=== PATIENT | male | born 1980 | race Two or more races ===

== ENCOUNTER 2018-12-11 19:49 | Emergency (ER) | payer SELFPAY ==
[~2018-12-11] VITALS: Ht 160 cm; Wt 63.5 kg
[2018-12-11 20:14] VITALS: BP 146/90
--- NOTE | 2018-12-11 20:48 | PHYS DOC ---
Past Medical History Past Medical History: No Pertinent History ([facility],BRIANNA M UNLOADING CHECKER) Past Surgical History: No Surgical History ([facility],BRIANNA M UNLOADING CHECKER) Alcohol Use: Occasionally Drug Use: None ([facility],BRIANNA M UNLOADING CHECKER) Adult General Chief Complaint Chief Complaint: FINGER INJURY HPI HPI Patient is a 38 year old male who presents with wart to right tip of the third finger for the last year and he states it is painful at time. Denies any injury. ([facility],BRIANNA M UNLOADING CHECKER) Review of Systems Review of Systems Constitutional: Denies fever or chills [] Eyes: Denies change in visual acuity, redness, or eye pain [] HENT: Denies nasal congestion or sore throat [] Respiratory: Denies cough or shortness of breath [] Cardiovascular: No additional information not addressed in HPI [] GI: Denies abdominal pain, nausea, vomiting, bloody stools or diarrhea [] : Denies dysuria or hematuria [] Musculoskeletal: Denies back pain or joint pain [] Integument: Denies rash or skin lesions [] Neurologic: Denies headache, focal weakness or sensory changes [] Endocrine: Denies polyuria or polydipsia [] All other systems were reviewed and found to be within normal limits, except as documented in this note. ([facility],BRIANNA M UNLOADING CHECKER) Physical Exam Physical Exam Constitutional: Well developed, well nourished, no acute distress, non-toxic appearance. [] HENT: Normocephalic, atraumatic, bilateral external ears normal, oropharynx moist, no oral exudates, nose normal. [] Eyes: PERRLA, EOMI, conjunctiva normal, no discharge. [] Neck: Normal range of motion, no tenderness, supple, no stridor. [] Cardiovascular:Heart rate regular rhythm, no murmur [] Lungs & Thorax: Bilateral breath sounds clear to auscultation [] Abdomen: Bowel sounds normal, soft, no tenderness, no masses, no pulsatile masses. [] Skin: Warm, dry, no erythema, no rash. [] Back: No tenderness, no CVA tenderness. [] Extremities: No tenderness, no cyanosis, no clubbing, ROM intact, no edema. [] Neurologic: Alert and oriented X 3, normal motor function, normal sensory function, no focal deficits noted. [] Psychologic: Affect normal, judgement normal, mood normal. [] (BRIANNA HARRIS APRN) Current Patient Data Vital Signs Vital Signs Date Time Temp Pulse Resp B/P (MAP) Pulse Ox O2 Delivery O2 Flow Rate FiO2 12/11/18 20:14 98.1 78 20 146/90 (108) 99 Room Air 98.1 (CELSO PERRIN DO) EKG EKG [] (BRIANNA HARRIS APRN) Radiology/Procedures Radiology/Procedures [] (BRIANNA HARRIS APRN) Course & Med Decision Making Course & Med Decision Making Patient is a 38 year old male who presents with wart to right tip of the third finger for the last year and he states it is painful at time. Denies any injury. There is no infection or redness seen the wart is a little bit bigger than pinpoint size the very tip of his finger that looks like it might slightly go under the nailbed area. Nail bed is and not lifted. Has no other warts on the patient's hands. Patient denies any warts on any other part of his body. Patient is diagnosed with a wart and is directed to see a primary care physician or to see dermatology. I did refer him to [facility]. [] (BRIANNA HARRIS APRN) Dragon Disclaimer Dragon Disclaimer This electronic medical record was generated, in whole or in part, using a voice recognition dictation system. (BRIANNA HARRIS APRN) Departure Departure Impression: Primary Impression: Wart Disposition: 01 HOME, SELF-CARE Condition: STABLE Referrals: NO PCP (PCP) DAVIDA CACERES MD Patient Instructions: Warts Additional Instructions: CALL DERMATOLOGY CLINIC SOON POSSIBLE. Attending Signature Attending Signature I have reviewed the PA/SANDING MACHINE TENDER AUTOMATIC's note and plan of care. I was available for consultation as needed during the patient's visit in the emergency department. I agree with the clinical impression, plan, and disposition. (CELSO PERRIN DO) Problem Qualifiers Primary Impression: Wart Viral wart type: unspecified viral wart Qualified Codes: B07.9 - Viral wart , unspecified BRIANNA HARRIS APRN Dec 11, 2018 20:48 CELSO PERRIN DO Dec 14, 2018 00:37
== END 2018-12-11 20:55 | disposition home or self-care (01) ==
LOC: ER 19:49
DX: B07.8 Other viral warts (principal); M79.644 Pain in right finger(s)
CPT/HCPCS: 99281

== ENCOUNTER 2019-01-04 22:38 | Emergency (ER) | payer SELFPAY ==
[~2019-01-04] VITALS: Ht 170.2 cm; Wt 63.5 kg
[2019-01-04 23:07] VITALS: BP 146/90
[2019-01-04] MEDS ORDERED: LIDOCAINE 1% Multi-Dose 20 ML VIAL. INJ ONE (23:30)
[2019-01-04] MEDS ORDERED: LIDOCAINE/EPI/TETRACAINE TOPICAL GEL 3 ML. TP ONE (23:30)
[2019-01-04] MEDS ORDERED: DIPHTH,PERTUSS(ACELL),TET TOX 0.5 ML DISP.SYRIN. VAX IM ONE (23:30)
--- NOTE | 2019-01-05 00:08 | RAD ---
CT HEAD AND MAXILLOFACIAL WO dated 01/04/2019 10:58 PM Indication:..fall facial laceration pain Comparison: No comparison is available. Technique: Contiguous axial imaging the head was performed from skull base to vertex. No contrast administered. In addition, axial imaging of the maxillary facial bones obtained with thin cut coronal and sagittal reconstruction. One or more of the following individualized dose reduction techniques were utilized for this examination: 1. Automated exposure control 2. Adjustment of the mA and/or kV according to patient size 3. Use of iterative reconstruction technique Findings: Ventricles and sulci are mildly prominent for age. No midline shift or mass effect. Mild patchy low density in the deep/subcortical periventricular white matter. No hemorrhage or extra-axial collection. There is a focal zone of encephalomalacia within the right parietal lobe with evidence of prior right parietal craniotomy. Posterior fossa and brainstem unremarkable. No acute bony abnormality. Images of the maxillofacial bones show no evidence of displaced facial fracture. Mild deformity of the anterior wall of the left maxillary sinus could be related to old healed fracture. There is also some flattening of the bilateral nasal bones that could be related to old healed fracture. Zygomatic arches and mandible are intact. The orbital friedman and maxillary friedman are otherwise intact. Moderate mucosal thickening left maxillary sinus. Mild mucosal thickening bilateral ethmoid air cells and left maxillary sinus. There is occlusion of the left ostiomeatal unit. Sphenoid sinuses are clear. Mastoid air cells are clear. No significant soft tissue abnormality. IMPRESSION HEAD: 1. No evidence of acute intracranial hemorrhage or mass. 2. Small zone of encephalomalacia in the right parietal lobe status post craniotomy. 3. Minimal patchy low density in the deep/subcortical periventricular white matter, nonspecific but possibly related to chronic small vessel ischemic changes. Impression maxillofacial: 1. No evidence of displaced facial fracture. 2. Possible old healed fractures of the anterior wall left maxillary sinus and the bilateral nasal bone. 3. Paranasal sinus disease as described above. Electronically signed by: Ozzie Chaudhari MD (01/05/2019 12:05 AM) [facility]
--- NOTE | 2019-01-05 01:04 | PHYS DOC ---
Past Medical History Past Medical History: No Pertinent History (ROXY WONG APRN) Past Surgical History: No Surgical History (ROXY WONG APRN) Alcohol Use: Occasionally Drug Use: None (ROXY WONG APRN) Adult General Chief Complaint Chief Complaint: LACERATION/AVULSION HPI HPI Patient is a 38 year old [place]-speaking male who presents with the ED with left facial lacerations. Patient states he fell on concrete, denies any loss of consciousness. We tried using headmaster/mistress line as well as his friend, patient will not diverge information. Patient and friend are both laughing as we ask question. The lacerations do not appear to have occurred from a fall. Patient appears intoxicated, friend states he only drank 5 bottles of beer. (ROXY WONG APRN) Review of Systems Review of Systems Constitutional: Denies fever or chills [] Eyes: Denies change in visual acuity, redness, or eye pain [] HENT: Denies nasal congestion or sore throat [] Respiratory: Denies cough or shortness of breath [] Cardiovascular: No additional information not addressed in HPI [] GI: Denies abdominal pain, nausea, vomiting, bloody stools or diarrhea [] : Denies dysuria or hematuria [] Musculoskeletal: Denies back pain or joint pain [] Integument: Left facial laceration Neurologic: Denies headache, focal weakness or sensory changes [] All other systems were reviewed and found to be within normal limits, except as documented in this note. (ROXY WONG APRN) Current Medications Current Medications Current Medications Medications (Trade) Dose Ordered Sig/Halie Start Time Stop Time Status Last Admin Dose Admin Diphtheria/ Tetanus/Acell Pertussis (Boostrix) 0.5 ml ONCE ONCE 01/04/19 23:30 01/04/19 23:31 DC 01/04/19 23:20 0.5 ML Lidocaine HCl (Lidocaine 1% 20ml Vial) 20 ml 1X ONCE 01/04/19 23:30 01/04/19 23:31 DC 01/04/19 23:18 20 ML Lidocaine/ Epinephrine (Let Topical) 3 ml 1X ONCE 01/04/19 23:30 01/04/19 23:31 DC 01/04/19 23:19 3 ML (CELSO PERRIN DO) Allergies Allergies Allergies Coded Allergies Type Severity Reaction Last Updated Verified No Known Drug Allergies 01/04/19 No (CELSO PERRIN DO) Physical Exam Physical Exam Constitutional: Well developed, well nourished, no acute distress, non-toxic appearance. [] HENT: Normocephalic, atraumatic, bilateral external ears normal, oropharynx moist, no oral exudates, nose normal. [] Eyes: PERRLA, EOMI, conjunctiva normal, no discharge. [] Neck: Normal range of motion, no tenderness, supple, no stridor. [] Cardiovascular:Heart rate regular rhythm, no murmur [] Lungs & Thorax: Bilateral breath sounds clear to auscultation [] Abdomen: Bowel sounds normal, soft, no tenderness, no masses, no pulsatile masses. [] Skin: Patient has 3 lacerations on the left facial area, 2 of them a superficial approximately 2 cm and do not need suturing. One laceration of significant size is U shaped and approximately 8 cm long by 1 cm deep. The laceration is not cutting through the cheek. Back: No tenderness, no CVA tenderness. [] Extremities: No tenderness, no cyanosis, no clubbing, ROM intact, no edema. [] Neurologic: Alert and oriented X 3, normal motor function, normal sensory function, no focal deficits noted. Cranial nerves II-XII intact Psychologic: Appears intoxicated (ROXY WONG APRN) Current Patient Data Vital Signs Vital Signs Date Time Temp Pulse Resp B/P (MAP) Pulse Ox O2 Delivery O2 Flow Rate FiO2 01/04/19 23:07 97.6 80 16 146/90 (108) 99 Room Air 97.6 (CELSO PERRIN DO) EKG EKG [] (ROXY WONG APRN) Radiology/Procedures Radiology/Procedures Laceration/Wound Repair Wound Location: Left cheek Wound's Depth, Shape: U Wound Length (cm): Approximately 8 cm Wound Explored: clean Irrigated w/ Saline (ccs): Yes 100cc Betadine Prep?: Yes Anesthesia: Let solution then later 1% lidocaine Volume Anesthetic (ccs): 3 mL of let solution LET 7 mL of lidocaine Wound Repaired With: Absorbable gut Suture Size/Type: 6.0/interrupted sutures Number of Sutures: Inner laceration was repaired with 3 interrupted sutures, exterior laceration was repaired with approximately 20 interrupted sutures. Progress : Wound was left open to air. (ROXY WONG APRN) Course & Med Decision Making Course & Med Decision Making Pertinent Labs and Imaging studies reviewed. (See chart for details) This is a 38-year-old male patient presenting to the ED today with lacerations on the left facial area after falling though the story does not much the injury he has. CT of the head and maxillary facial are negative. Laceration was repaired by me as noted in procedures, tetanus updated, wound care instructions and return precautions provided. (ROXY WONG APRN) Dragon Disclaimer Dragon Disclaimer This electronic medical record was generated, in whole or in part, using a voice recognition dictation system. (ROXY WONG APRN) Departure Departure Impression: Primary Impression: Face lacerations Disposition: HOME, SELF-CARE Condition: STABLE Referrals: NO PCP (PCP) follow up with your doctor as needed Patient Instructions: Facial Laceration Additional Instructions: You have facial laceration that was closed with dissolvable sutures, you can shower and wash your face, apply Neosporin to the area twice a day. Monitor the area for any worsening condition including increased redness warmth or yellow drainage from the area and return to the ED if they occur. Follow-up with your own doctor as needed. Attending Signature Attending Signature I have reviewed the PA/PHOTOGRAPHER ASSISTANT's note and plan of care. I was available for consultation as needed during the patient's visit in the emergency department. I agree with the clinical impression, plan, and disposition. (CELSO PERRIN DO) Problem Qualifiers Primary Impression: Face lacerations Encounter type: initial encounter Qualified Codes: S01.81XA - Laceration without foreign body of other part of head, initial encounter ROXY WONG APRN Jan 05, 2019 01:04 CELSO PERRIN DO Jan 05, 2019 04:35
== END 2019-01-05 01:12 | disposition home or self-care (01) ==
LOC: ER 22:38
DX: S01.412A Laceration without foreign body of left cheek and temporomandibular area, initial encounter (principal); W18.39XA Other fall on same level, initial encounter; Y93.89 Activity, other specified; Y92.89 Other specified places as the place of occurrence of the external cause; Y99.8 Other external cause status
CPT/HCPCS: 12015; 70450; 70486; 90471; 90715; 99284